=== PATIENT | male | born 2000 | race African-American/Black ===

== ENCOUNTER 2023-08-24 08:02 | Observation (INO) | payer OTHER ==
[~2023-08-24] VITALS: Ht 162.6 cm; Wt 67.7 kg
[2023-08-24] MEDS ORDERED: FLUO40CA PO (08:20)
[2023-08-24] MEDS ORDERED: ISOVUE-370 76% 100ML VIAL As Ordered ONE (08:45)
[2023-08-24 08:59] LABS: BASO # 0.1 10^3/uL (0.0-0.2); BASO % 0.5 % (0.0-1.0); EOS # 0.1 10^3/uL (0.0-0.5); EOS % 0.5 % (0.0-3.0); HEMATOCRIT 44.8 % (42.0-52.0); HEMOGLOBIN 15.1 g/dl (13.5-17.5); LYMPH # 1.2 10^3/uL (1.5-5.0); LYMPH % 11.2 % (24.0-44.0); MEAN CORPUSCULAR HEMOGLOBIN 29.5 pg (27.0-33.0); MEAN CORPUSCULAR HGB CONC 33.7 g/dl (32.0-36.5); MEAN CORPUSCULAR VOLUME 87.5 fl (80.0-96.0); MONO # 0.6 10^3/uL (0.0-0.8); MONO % 5.2 % (2.0-8.0); NEUTROPHILS # 9.1 10^3/uL (1.5-8.5); NEUTROPHILS % 82.1 % (36.0-66.0); RED BLOOD COUNT 5.12 10^6/uL (4.30-6.10); WHITE BLOOD COUNT 11.1 10^3/uL (4.0-10.0)
[2023-08-24 09:19] LABS: ETHYL ALCOHOL (ETHANOL) 0.006 % (0.000-0.010)
[2023-08-24 09:20] LABS: MAGNESIUM LEVEL 2.2 MG/DL (1.8-2.4)
[2023-08-24] MEDS: NS 1,000 ML IV ONE (09:23)
[2023-08-24 09:24] LABS: THYROID STIMULATING HORMONE 0.949 uIU/ML (0.55-4.78)
[2023-08-24 09:26] LABS: CK-MB VALUE MASS 1.7 NG/ML (<3.6); FREE T4 1.29 NG/DL (0.89-1.76); MB/CK RELATIVE INDEX 0.24 (< OR =4)
[2023-08-24 09:44] LABS: RSV AMPLIFICATION NEGATIVE (NEGATIVE)
[2023-08-24 10:23] LABS: BLOOD UREA NITROGEN 10 MG/DL (9-23); CALCIUM LEVEL 9.3 MG/DL (8.5-10.1); CARBON DIOXIDE LEVEL 26 MMOL/L (20-31); CHLORIDE LEVEL 98 MMOL/L (98-107); CK-MB VALUE MASS 1.4 NG/ML (<3.6); CREATININE FOR GFR 1.14 MG/DL (0.70-1.30); GLOMERULAR FILTRATION RATE > 60.0 (>60); GLUCOSE, FASTING 97 MG/DL (60-100); POTASSIUM SERUM 4.5 MMOL/L (3.5-5.1); SODIUM LEVEL 130 MMOL/L (136-145)
[2023-08-24 10:27] LABS: MB/CK RELATIVE INDEX 0.18 (< OR =4)
[2023-08-24 12:04] LABS: CK-MB VALUE MASS 1.9 NG/ML (<3.6)
[2023-08-24 12:07] LABS: CPK CREATINE PHOSPHOKINASE 1099 U/L (46-171); MB/CK RELATIVE INDEX 0.17 (< OR =4)
[2023-08-24] MEDS ORDERED: MAALOX 30 ML SUSP *UDC PO PRN (13:05)
[2023-08-24] MEDS ORDERED: MOM 30ML SUSPENSION UDC PO PRN (13:05)
[2023-08-24] MEDS ORDERED: MED REC IN PROGRESS XX SCH (13:10)
[2023-08-24] MEDS ORDERED: HOME MED LIST COMPLETE! XX SCH (13:45)
[2023-08-24 13:55] LABS: ERYTHROCYTE SEDIMENTATION RATE 43 mm/hr (0-15)
[2023-08-24 13:59] LABS: C REACTIVE PROTEIN QUANTITATIV < 0.40 MG/DL (<1.0)
[2023-08-24 14:01] LABS: ALBUMIN 3.9 G/DL (3.2-5.2); ALKALINE PHOSPHATASE 56 U/L (46-116); ALT/SGPT 22 U/L (7.0-40); AST/SGOT 41 U/L (<34); BILIRUBIN,DIRECT 0.4 MG/DL (<0.4); BILIRUBIN,TOTAL 1.2 MG/DL (0.3-1.2); TOTAL PROTEIN 7.9 G/DL (5.7-8.2)
[2023-08-24] MEDS: NS 1,000 ML IV SCH (15:01)
[2023-08-24 16:34] LABS: CK-MB VALUE MASS 2.3 NG/ML (<3.6)
[2023-08-24 16:58] LABS: MB/CK RELATIVE INDEX 0.15 (< OR =4)
[2023-08-24] MEDS: ACETAMINOPHEN TAB 650MG DOSE (2X325MG) PO PRN (19:34)
[2023-08-24] MEDS: DOCUSATE SODIUM 100MG CAPSULE PO SCH (21:00)
[2023-08-25 06:25] LABS: BASO # 0.1 10^3/uL (0.0-0.2); BASO % 0.9 % (0.0-1.0); EOS # 0.3 10^3/uL (0.0-0.5); EOS % 4.4 % (0.0-3.0); HEMATOCRIT 40.1 % (42.0-52.0); HEMOGLOBIN 13.3 g/dl (13.5-17.5); LYMPH # 2.7 10^3/uL (1.5-5.0); LYMPH % 47.6 % (24.0-44.0); MEAN CORPUSCULAR HEMOGLOBIN 28.9 pg (27.0-33.0); MEAN CORPUSCULAR HGB CONC 33.2 g/dl (32.0-36.5); MEAN CORPUSCULAR VOLUME 87.2 fl (80.0-96.0); MONO # 0.5 10^3/uL (0.0-0.8); MONO % 8.9 % (2.0-8.0); NEUTROPHILS # 2.2 10^3/uL (1.5-8.5); PLATELET COUNT, AUTOMATED 327 10^3/uL (150-450); WHITE BLOOD COUNT 5.7 10^3/uL (4.0-10.0)
[2023-08-25 06:47] LABS: BLOOD UREA NITROGEN 11 MG/DL (9-23); CARBON DIOXIDE LEVEL 26 MMOL/L (20-31); CHLORIDE LEVEL 103 MMOL/L (98-107); CPK CREATINE PHOSPHOKINASE 1166 U/L (46-171); CREATININE FOR GFR 1.07 MG/DL (0.70-1.30); GLOMERULAR FILTRATION RATE > 60.0 (>60); GLUCOSE, FASTING 87 MG/DL (60-100); MAGNESIUM LEVEL 1.8 MG/DL (1.8-2.4); SODIUM LEVEL 136 MMOL/L (136-145)
[2023-08-25] MEDS: ENOXAPARIN 40MG/0.4ML SYRINGE (J1650 PER 10MG) SC SCH (08:21)
[2023-08-25 11:55] LABS: BARBITURATES URINE NEGATIVE (NEGATIVE)
[2023-08-25 11:56] LABS: AMPHETAMINES LEVEL URINE NEGATIVE (NEGATIVE); BENZODIAZEPINES URINE NEGATIVE (NEGATIVE); COCAINE METABOLITE URINE NEGATIVE (NEGATIVE); METHADONE URINE NEGATIVE (NEGATIVE); OPIATES URINE NEGATIVE (NEGATIVE); PHENCYCLIDINE URINE NEGATIVE (NEGATIVE)
[2023-08-25 12:03] LABS: CANNABINOIDS URINE POSITIVE (NEGATIVE)
[2023-08-25 13:00] VITALS: BP 116/72; TEMP 98.2; O2SAT 100
== END 2023-08-25 15:29 | disposition home or self-care (01) ==
LOC: EDBD 08:02 → M ED 08:02 → M ED INP 13:19
PROVIDERS: ADMIT Internal Medicine; ATTEND Internal Medicine
DX: R55 Syncope and collapse (principal); R06.02 Shortness of breath; R00.2 Palpitations; R07.9 Chest pain, unspecified; D72.829 Elevated white blood cell count, unspecified; E87.1 Hypo-osmolality and hyponatremia; M62.82 Rhabdomyolysis; F32.A Depression, unspecified; J33.8 Other polyp of sinus; R94.31 Abnormal electrocardiogram [ECG] [EKG]; F17.290 Nicotine dependence, other tobacco product, uncomplicated; Z87.820 Personal history of traumatic brain injury; Z82.3 Family history of stroke; Z86.69 Personal history of other diseases of the nervous system and sense organs
CPT/HCPCS: 36415; 70450; 71045; 71275; 80047; 80048; 80076; 80307; 81002; 82077; 82550; 82553; 83735; 84439; 84443; 84484; 85025; 85652; 86140; 87486; 87581; 87631; 87633; 87798; 93005; 93041; 93306; 94760; 96360; 96361; 96372; 97161; 99285; J1650; Q9967

== ENCOUNTER 2023-09-04 15:19 | Inpatient (IN) | payer OTHER ==
[~2023-09-04] VITALS: Ht 162.6 cm; Wt 70.5 kg
[~2023-09-04 15:19] MED LIST: FLUO40CA PO
[2023-09-04 15:53] LABS: BASO # 0.1 10^3/uL (0.0-0.2); BASO % 0.9 % (0.0-1.0); EOS # 0.2 10^3/uL (0.0-0.5); EOS % 3.9 % (0.0-3.0); HEMATOCRIT 42.6 % (42.0-52.0); HEMOGLOBIN 14.1 g/dl (13.5-17.5); LYMPH # 2.5 10^3/uL (1.5-5.0); MEAN CORPUSCULAR HEMOGLOBIN 29.1 pg (27.0-33.0); MEAN CORPUSCULAR HGB CONC 33.1 g/dl (32.0-36.5); MEAN CORPUSCULAR VOLUME 87.8 fl (80.0-96.0); MONO # 0.4 10^3/uL (0.0-0.8); MONO % 7.4 % (2.0-8.0); NEUTROPHILS # 2.5 10^3/uL (1.5-8.5); NEUTROPHILS % 43.6 % (36.0-66.0); PLATELET COUNT, AUTOMATED 395 10^3/uL (150-450); RED BLOOD COUNT 4.85 10^6/uL (4.30-6.10); WHITE BLOOD COUNT 5.6 10^3/uL (4.0-10.0)
[2023-09-04 16:21] LABS: CPK CREATINE PHOSPHOKINASE 975 U/L (46-171)
[2023-09-04 16:22] LABS: SALICYLATE LEVEL < 3.0 MG/DL (<30)
[2023-09-04 16:53] LABS: ETHYL ALCOHOL (ETHANOL) 0.147 % (0.000-0.010)
[2023-09-04 17:08] LABS: ALBUMIN 3.6 G/DL (3.2-5.2); ALKALINE PHOSPHATASE 64 U/L (46-116); ALT/SGPT 26 U/L (7.0-40); AST/SGOT 41 U/L (<34); BILIRUBIN,DIRECT 0.3 MG/DL (<0.4); BLOOD UREA NITROGEN 12 MG/DL (9-23); CALCIUM LEVEL 9.5 MG/DL (8.5-10.1); CARBON DIOXIDE LEVEL 28 MMOL/L (20-31); CHLORIDE LEVEL 102 MMOL/L (98-107); CREATININE FOR GFR 1.01 MG/DL (0.70-1.30); GLOMERULAR FILTRATION RATE > 60.0 (>60); GLUCOSE, FASTING 85 MG/DL (60-100); SODIUM LEVEL 139 MMOL/L (136-145); TOTAL PROTEIN 8.1 G/DL (5.7-8.2)
[2023-09-04] MEDS: NS 1,000 ML IV SCH (17:35)
[2023-09-04 17:44] LABS: AMPHETAMINES LEVEL URINE NEGATIVE (NEGATIVE); BARBITURATES URINE NEGATIVE (NEGATIVE); BENZODIAZEPINES URINE NEGATIVE (NEGATIVE); COCAINE METABOLITE URINE NEGATIVE (NEGATIVE); METHADONE URINE NEGATIVE (NEGATIVE)
[2023-09-04 17:45] LABS: OPIATES URINE NEGATIVE (NEGATIVE); PHENCYCLIDINE URINE NEGATIVE (NEGATIVE)
[2023-09-04 17:54] LABS: CANNABINOIDS URINE POSITIVE (NEGATIVE)
[2023-09-05] MEDS ORDERED: HOME MED LIST COMPLETE! XX SCH (10:10)
[2023-09-06] MEDS ORDERED: LORazepam 2 MG TAB PO PRN (12:15)
[2023-09-06] MEDS ORDERED: diphenhydrAMINE 25MG CAP PO PRN (12:15)
[2023-09-06] MEDS ORDERED: MOM 30ML SUSPENSION UDC PO PRN (12:15)
[2023-09-06] MEDS ORDERED: MAALOX 30 ML SUSP *UDC PO PRN (12:15)
[2023-09-06] MEDS ORDERED: ACETAMINOPHEN TAB 650MG DOSE (2X325MG) PO PRN (12:15)
[2023-09-06] MEDS: THIAMINE 100 MG TAB PO SCH (15:40)
[2023-09-06] MEDS: MULTIVITAMINS/MINERALS THERAP 1 TAB PO SCH (15:40)
[2023-09-06] MEDS: FOLIC ACID 1MG TAB PO SCH (15:41)
[2023-09-06 16:02] VITALS: BP 123/85; TEMP 98.3; O2SAT 100
[2023-09-06 17:10] VITALS: BP 123/85
[2023-09-06] MEDS: traZODone 50 MG TAB PO PRN (21:45)
[2023-09-07 01:10] VITALS: BP 99/68
[2023-09-07 06:22] VITALS: BP 110/55; TEMP 98.3; O2SAT 98
[2023-09-07 09:30] VITALS: BP 134/82
[2023-09-07] MEDS: VENLAFAXINE **XR** 37.5 MG CAPSULE PO SCH (11:19)
[2023-09-07] MEDS: PROPRANOLOL 10 MG TAB PO SCH (11:19)
[2023-09-07 17:30] VITALS: BP 111/62
[2023-09-07 17:35] VITALS: BP 111/62; TEMP 98.3; O2SAT 100
[2023-09-07] MEDS: ALBUTEROL 90 MCG/ACT 8GM HFA INHALER INH PRN (22:40)
[2023-09-07] MEDS: IBUPROFEN 400MG TAB PO PRN (22:41)
[2023-09-08 06:13] VITALS: BP 133/58; TEMP 97.8; O2SAT 99
[2023-09-08 17:21] VITALS: BP 113/67; TEMP 98.1; O2SAT 100
[2023-09-09 06:23] VITALS: BP 114/57; TEMP 98.2; O2SAT 98
[2023-09-09 16:48] VITALS: BP 126/60; TEMP 97.9; O2SAT 100
[2023-09-10 06:10] VITALS: BP 109/57; TEMP 97.6; O2SAT 99
[2023-09-10] MEDS ORDERED: VENTAER INH (09:39)
[2023-09-10] MEDS ORDERED: TRAZ-252 PO (09:39)
[2023-09-10] MEDS ORDERED: VENL37.598 PO (09:39)
[2023-09-10] MEDS ORDERED: PROP10TA56 PO (09:39)
[2023-09-10 09:52] VITALS: BP 112/66
== END 2023-09-10 10:33 | disposition home or self-care (01) | DRG 885 ==
LOC: EDBD 15:19 → M ED 15:19 → M ED INP 09-06 12:12 → M PSY 09-06 15:52
PROVIDERS: ADMIT Student in an Organized Health Care Education/Training Program; ATTEND Student in an Organized Health Care Education/Training Program
DX: F32.89 Other specified depressive episodes (principal); F41.9 Anxiety disorder, unspecified; R25.1 Tremor, unspecified; F10.90 Alcohol use, unspecified, uncomplicated; F17.200 Nicotine dependence, unspecified, uncomplicated; J45.909 Unspecified asthma, uncomplicated